=== PATIENT | female | born 1955 | race Hispanic/Latino ===

== ENCOUNTER 2017-09-18 23:51 | Inpatient (IN) | payer BC ==
[~2017-09-18] VITALS: Ht 144.8 cm; Wt 88.0 kg
[~2017-09-18 23:51] MED LIST: BESIVANCE5 ML OD; ILEVRO OD; NAPROSYN500 MG PO; VALACYCLOVIR500 MG PO
[2017-09-19] MEDS ORDERED: ONDANSETRON HCL INJ 2 MG/ML VIAL IV STA ×2 (00:16→04:09)
[2017-09-19] MEDS ORDERED: PANTOPRAZOLE 40 MG 10ML VIAL IV STA (00:16)
[2017-09-19] MEDS ORDERED: MORPHINE SULFATE 2 MG/ML SYR IV STA ×2 (00:16→04:09)
[2017-09-19] MEDS ORDERED: SODIUM CHLORIDE 0.9% 1000ML 1,000 ML IV STA (00:16)
[2017-09-19 00:31] LABS: BASOPHILS # (AUTO) 0.1 (0.0-0.1); BASOPHILS % 0.4 % (0.0-1.0); EOSINOPHILS # (AUTO) 0.5 (0.0-0.4); HEMATOCRIT 39.6 % (34.2-44.1); HEMOGLOBIN 12.9 g/dL (12.0-16.0); LYMPHOCYTES # (AUTO) 5.8 (1.0-3.2); LYMPHOCYTES % 47.5 % (18.0-39.1); MEAN CORPUSCULAR HEMOGLOBIN 28.9 pg (28-32); MEAN CORPUSCULAR HGB CONC 32.6 g/dL (31-35); MEAN CORPUSCULAR VOLUME 88.6 fL (81-99); MONOCYTES # (AUTO) 0.9 (0.2-0.8); MONOCYTES % 7.1 % (4.4-11.3); NEUTROPHILS % 40.8 % (38.7-80.0); PLATELET COUNT 276 x10e3/uL (140-360); RED BLOOD COUNT 4.47 x10e6/uL (3.6-5.1); RED CELL DISTRIBUTION WIDTH 13.5 % (11.7-14.4)
[2017-09-19 00:41] LABS: INR 1.01; PROTHROMBIN TIME 12.5 seconds (11.9-14.5)
[2017-09-19 00:42] LABS: PARTIAL THROMBOPLASTIN TIME 31.5 seconds (23.8-35.5)
[2017-09-19 00:52] LABS: ALANINE AMINOTRANSFERASE 14 IU/L (0-55); ALBUMIN 3.6 g/dL (3.5-5.0); ALBUMIN/GLOBULIN RATIO 0.8 (0.8-2.0); ALKALINE PHOSPHATASE 101 IU/L (40-150); AMYLASE 81 U/L (25-125); ANION GAP 13.7 mmol/L (8-16); BLOOD UREA NITROGEN 19 mg/dL (7-26); BUN/CREATININE RATIO 20 (6-25); CALCIUM 9.6 mg/dL (8.4-10.2); CARBON DIOXIDE 25 mmol/L (22-29); CHLORIDE 103 mmol/L (98-107); CREATINE KINASE 22 IU/L (29-168); CREATININE, SERUM 0.94 mg/dL (0.57-1.11); EST GLOMERULAR FILTRATION RATE 60 ML/MIN (60-); GLUCOSE 125 mg/dL (74-118); LIPASE 33 U/L (8-78); MAGNESIUM 1.7 MG/DL (1.3-2.1); POTASSIUM 3.7 mmol/L (3.5-5.1); SODIUM 138 mmol/L (136-145)
[2017-09-19 02:15] LABS: BILIRUBIN,URINE NEGATIVE (NEGATIVE); KETONES,URINE NEGATIVE (NEGATIVE); LEUKOCYTE ESTERASE ,URINE NEGATIVE (NEGATIVE); NITRITE,URINE NEGATIVE (NEGATIVE); PROTEIN,URINE DIPSTICK NEGATIVE (NEGATIVE); URINE UROBILINOGEN 0.2 mg/dL (0.2 - 1)
[2017-09-19 02:16] LABS: CLARITY,URINE CLEAR (CLEAR); COLOR,URINE YELLOW (YELLOW)
[2017-09-19 02:25] LABS: BACTERIA,URINE FEW /HPF; EPITHELIAL CELLS,URINE FEW /LPF; WBC,URINE (MAN) 0-5 /HPF (0-5)
--- NOTE | 2017-09-19 02:46 | Diagnostic Imaging Report ---
EXAMINATION: CHEST SINGLE (PORTABLE) INDICATION: Abdominal pain COMPARISON: None FINDINGS: TUBES and LINES: None. LUNGS: Lungs are not well inflated. Lungs are clear. There is mild prominence of the central pulmonary vasculature, consistent with pulmonary venous congestion. PLEURA: No pleural effusion or pneumothorax. HEART AND MEDIASTINUM: Cardiac size is moderately enlarged. BONES AND SOFT TISSUES: No acute osseous lesion. Soft tissues are unremarkable. UPPER ABDOMEN: No free air under the diaphragm. IMPRESSION: Moderate enlargement of the heart with evidence of central vascular congestion. Signed by: Dr. Chad Cortez M.D. on 09/19/2017 2:43 AM
--- NOTE | 2017-09-19 02:49 | Diagnostic Imaging Report ---
EXAM: CT Abdomen and Pelvis WITH contrast INDICATION: Right upper quadrant abdominal pain COMPARISON: None. TECHNIQUE: Abdomen and pelvis were scanned utilizing a multidetector helical scanner from the lung base to the pubic symphysis after administration of IV contrast. Coronal and sagittal reformations were obtained. Routine protocol was performed. Scan was performed when during portal venous phase. IV CONTRAST: 100 mL of Isovue-370 ORAL CONTRAST: Water RADIATION DOSE: Total DLP: 669.86 mGy*cm Estimated effective dose: (DLP x 0.015 x size factor) mSv COMPLICATIONS: None FINDINGS: LINES and TUBES: None. LOWER THORAX: Remarkable for moderate pericardial effusion HEPATOBILIARY: No focal hepatic lesions. No biliary ductal dilation. GALLBLADDER: There are stones in the gallbladder. SPLEEN: No splenomegaly. PANCREAS: No focal masses or ductal dilatation. ADRENALS: No adrenal nodules KIDNEYS/URETERS: Kidneys enhance symmetrically. No hydronephrosis. No cystic or solid mass lesions. No stones. GI TRACT: No abnormal distention, wall thickening, or evidence of bowel obstruction. There are diverticula within the colon without evidence of diverticulitis. Appendix is normal. PELVIC ORGANS/BLADDER: There are postop changes of hysterectomy and bilateral oophorectomies. LYMPH NODES: No lymphadenopathy. VESSELS: Unremarkable. PERITONEUM / RETROPERITONEUM: No free air or fluid. BONES: There are degenerative changes in the lumbar spine more significant at L4-5 and L5-S1 levels. SOFT TISSUES: Unremarkable. IMPRESSION: 1. No acute intra-abdominal or pelvic abnormality. 2. Cholelithiasis without evidence of acute cholecystitis. These findings may explain intermittent right upper quadrant pain. Signed by: Dr. Chad Cortez M.D. on 09/19/2017 2:45 AM
[2017-09-19] MEDS ORDERED: IOPAMIDOL 370 MG/ML 200 ML INFUS..BTL INJ ONE (02:59)
[2017-09-19] MEDS ORDERED: SODIUM CHLORIDE 0.9% 50ML 50 ML ONE ×2 (02:59→04:24)
[2017-09-19] MEDS ORDERED: SODIUM CHLORIDE 0.9% 250ML 250 ML ONE (04:27)
[2017-09-19] MEDS ORDERED: PROMETHAZINE HCL (IM) 25 MG/ML VIAL IV PRN (04:30)
--- OUTSIDE RECORDS SUMMARY | 2017-09-19 04:32 | XMS REPORT ---
[facility] Address Unknown Phone Unavailable Care Team Providers Care Grader Operator Name Role Phone YEHUDA OH Unavailable Unavailable Problems This patient has no known problems. Allergies, Adverse Reactions, Alerts This patient has no known allergies or adverse reactions. Medications This patient has no known medications. Results Test Description Test Time Test Comments Text Results Atomic Results Result Comments CHEST SINGLE (PORTABLE) [place] [address] Patient Name: YASH CHEN MR #: [id number] : 1955 Age/Sex: 62/F Req #: [id number] Adm Physician: Ordered by: YEHUDA OH MD Report #: [id number] Location: ER Room/Bed: Procedure: [id number] DX/CHEST SINGLE (PORTABLE) Exam Date: Exam Time: REPORT STATUS: Signed EXAMINATION: CHEST SINGLE ( PORTABLE) INDICATION: Abdominal pain COMPARISON: None FINDINGS: TUBES and LINES: None. LUNGS: Lungs are not well inflated. Lungs are clear. There is mild prominence of the central pulmonary vasculature, consistent with pulmonary venous congestion. PLEURA: No pleural effusion or pneumothorax. HEART AND MEDIASTINUM: Cardiac size is moderately enlarged. BONES AND SOFT TISSUES: No acute osseous lesion. Soft tissues are unremarkable. UPPER ABDOMEN: No free air under the diaphragm. IMPRESSION: Moderate enlargement of the heart with evidence of central vascular congestion. Signed by: Dr. Chad Cortez M.D. on 09/19/2017 2:43 AM Dictated By: CHAD ALDANA MD 2 Transcribed By: LARRY on 09/19/17242 COPY TO: YEHUDA OH MD CT ABDOMEN/PELVIS W [place] [address] Patient Name: YASH CHEN MR #: [id number] : 1955 Age/Sex: 62/F Req #: [id number] Adm Physician: Ordered by: YEHUDA OH MD Report #: [id number] Location: ER Room/Bed: Procedure: [id number] CT/CT ABDOMEN/PELVIS W Exam Date: Exam Time: REPORT STATUS: Signed EXAM: CT Abdomen and Pelvis WITH contrast INDICATION: Right upper quadrant abdominal pain COMPARISON: None. TECHNIQUE : Abdomen and pelvis were scanned utilizing a multidetector helical scanner from the lung base to the pubic symphysis after administration of IV contrast. Coronal and sagittal reformations were obtained. Routine protocol was performed. Scan was performed when during portal venous phase. IV CONTRAST: 100 mL of Isovue-370 ORAL CONTRAST: Water RADIATION DOSE: Total DLP: 669.86 mGy*cm Estimated effective dose: (DLP x 0.015 x size factor) mSv COMPLICATIONS: None FINDINGS: LINES and TUBES: None. LOWER THORAX: Remarkable for moderate pericardial effusion HEPATOBILIARY: No focal hepatic lesions. No biliary ductal dilation. GALLBLADDER: There are stones in the gallbladder. SPLEEN: No splenomegaly. PANCREAS: No focal masses or ductal dilatation. ADRENALS: No adrenal nodules KIDNEYS/ URETERS: Kidneys enhance symmetrically. No hydronephrosis. No cystic or solid mass lesions. No stones. GI TRACT: No abnormal distention, wall thickening, or evidence of bowel obstruction. There are diverticula within the colon without evidence of diverticulitis. Appendix is normal. PELVIC ORGANS/BLADDER: There are postop changes of hysterectomy and bilateral oophorectomies. LYMPH NODES: No lymphadenopathy. VESSELS: Unremarkable. PERITONEUM / RETROPERITONEUM: No free air or fluid. BONES: There are degenerative changes in the lumbar spine more significant at L4-5 and L5-S1 levels. SOFT TISSUES: Unremarkable. IMPRESSION: 1. No acute intra-abdominal or pelvic abnormality. 2. Cholelithiasis without evidence of acute cholecystitis. These findings may explain intermittent right upper quadrant pain. Signed by: Dr. Chad Cortez M.D. on 09/19/2017 2:45 AM Dictated By: CHAD ALDANA MD 4 Transcribed By: LARRY on 09/19/17244 COPY TO: YEHUDA OH MD
[2017-09-19] MEDS: CEFTRIAXONE SOD 1 GM VIAL IV SCH ×2 (04:46→16:24)
[2017-09-19] MEDS: METRONIDAZOLE 500MG/NS 100ML 100 ML IV SCH ×3 (04:56→17:47)
[2017-09-19 05:18] VITALS: BP 139/65
[2017-09-19 05:50] VITALS: BP 139/65
[2017-09-19] MEDS: SODIUM CHLORIDE 0.9% 1000ML 1,000 ML IV SCH ×3 (06:00→22:00)
[2017-09-19 08:00] VITALS: BP 160/75
[2017-09-19] MEDS: PANTOPRAZOLE 40 MG 10ML VIAL IV SCH (08:16)
[2017-09-19] MEDS ORDERED: INFLUENZA VIRUS VAC SPLIT INJ 0.5 ML SYR IM ONE (09:00)
[2017-09-19] MEDS ORDERED: LABETALOL HCL IV 5 MG/ML 20ML MDV IV PRN (09:45)
[2017-09-19 10:04] LABS: CREATINE KINASE MB 0.5 ng/mL (0-5.0)
[2017-09-19 12:00] VITALS: BP 121/61
[2017-09-19] MEDS: ONDANSETRON HCL INJ 2 MG/ML VIAL IV PRN ×2 (15:11→22:00)
[2017-09-19] MEDS: HYDROMORPHONE 1MG/1ML INJ IV PRN ×2 (15:11→22:00)
[2017-09-19 15:32] VITALS: BP 128/59
[2017-09-19 16:57] LABS: CREATINE KINASE MB 0.4 ng/mL (0-5.0)
[2017-09-19 20:00] VITALS: BP 105/54
[2017-09-20] VITALS (7 sets, daily range): BP systolic 100–144; BP diastolic 54–71
[2017-09-20] MEDS: METRONIDAZOLE 500MG/NS 100ML 100 ML IV SCH ×5 (00:43→23:52)
[2017-09-20] MEDS: CEFTRIAXONE SOD 1 GM VIAL IV SCH ×2 (04:28→16:16)
[2017-09-20] MEDS ORDERED: BUPIVACAINE 0.25% 30ML SDV INJ ONE (07:26)
[2017-09-20 07:31] LABS: BASOPHILS % 0.3 % (0.0-1.0); EOSINOPHILS # (AUTO) 0.3 (0.0-0.4); EOSINOPHILS % 2.1 % (0.0-6.0); HEMATOCRIT 35.2 % (34.2-44.1); HEMOGLOBIN 11.3 g/dL (12.0-16.0); LYMPHOCYTES # (AUTO) 2.6 (1.0-3.2); LYMPHOCYTES % 22.2 % (18.0-39.1); MEAN CORPUSCULAR HGB CONC 32.1 g/dL (31-35); MEAN CORPUSCULAR VOLUME 90.5 fL (81-99); MONOCYTES % 8.1 % (4.4-11.3); NEUTROPHILS # (AUTO) 7.9 (2.1-6.9); NEUTROPHILS % 66.9 % (38.7-80.0); PLATELET COUNT 236 x10e3/uL (140-360); RED BLOOD COUNT 3.89 x10e6/uL (3.6-5.1); RED CELL DISTRIBUTION WIDTH 13.8 % (11.7-14.4)
[2017-09-20 08:09] LABS: ALBUMIN/GLOBULIN RATIO 0.8 (0.8-2.0); ANION GAP 11.6 mmol/L (8-16); CALCIUM 8.7 mg/dL (8.4-10.2); CREATININE, SERUM 0.96 mg/dL (0.57-1.11); POTASSIUM 3.6 mmol/L (3.5-5.1)
[2017-09-20] MEDS ORDERED: HYDROMORPHONE 1MG/1ML INJ IV PRN (09:45)
[2017-09-20] MEDS ORDERED: HYDROMORPHONE 1MG/1ML INJ ONE (10:00)
--- NOTE | 2017-09-20 10:21 | Operative Report ---
DATE OF PROCEDURE: September 20, 2017 PREOPERATIVE DIAGNOSIS: Acute cholecystitis secondary to cholelithiasis. POSTOPERATIVE DIAGNOSIS: Acute cholecystitis secondary to cholelithiasis. PROCEDURE PERFORMED: Laparoscopic cholecystectomy with decompression of hydrops of the gallbladder. ANESTHESIA: General endotracheal. ESTIMATED BLOOD LOSS: Minimal. DRAINS: None. COMPLICATIONS: None. INDICATIONS AND FINDINGS: This patient is a 62-year-old female admitted for cholecystectomy. She had a history of cholelithiasis in the past, but had not elected to have surgery, and thus admitted through the emergency room with acute cholecystitis secondary to cholelithiasis. There was no ductal dilatation by CT scan. Liver chemistries were normal. INTRAOPERATIVE FINDINGS: Acute cholecystitis with hydrops of the gallbladder. There was a large stone impacted in the outlet of the gallbladder. There were a total of 3. There was no ductal dilatation. There was hydrops of the gallbladder that was decompressed. DESCRIPTION OF PROCEDURE: With the patient lying on the operating table in the supine position and after administration, she was prepped and draped for laparoscopic cholecystectomy. The procedure was begun by establishing a pneumoperitoneum in the right upper quadrant midclavicular line because of previous midline . Pneumoperitoneum was insufflated to 15 mm of pressure. Then the 5-mm trocar was placed in that location under direct vision with a camera. We inspected the umbilical site. There were adhesions of the omentum to the area of the umbilicus. Then we made an incision superior to the umbilicus avoiding the adhesions of the omentum in that location and potentially any small bowel injury. We then placed a 10/11 trocar superior to the umbilicus to gain free access to the abdominal cavity. Then we rotated the patient to the left with the head up, and placed a 10 mm subxiphoid port and one right anterior axillary line trocar. Also, finally we placed a left upper quadrant 5-mm trocar to expose the operative field due to the inflammatory changes in the hepatoduodenal ligament. We then began the procedure by lysing adhesions of omentum and stomach to the gallbladder sharply, and then exposed the gallbladder completely. We then decompressed the gallbladder with an aspiration needle. Then we were to grasp it. The stomach and omentum were retracted posteriorly and inferiorly, and then we exposed the hepatoduodenal ligament. The dissection of the gallbladder was begun in the neck of the gallbladder until we identified the cystic duct. We traced the cystic duct to the common bile duct. At that point, we then clipped the cystic duct 3 times distally and once proximally. A small anterior branch was transected between titanium clips. Then the main artery was located more posteriorly. Then it was clipped as it entered the gallbladder between titanium clips also. Then we removed the gallbladder using electrocautery dissection and hydrodissection until we detached it. We placed the gallbladder in an endobag, including stones that had fallen off from the gallbladder during the dissection. Then we removed it through the umbilical port period. We re-insufflated the pneumoperitoneum, and then inspected the operative field. We irrigated the right lower quadrant. There was some oozing coming from the undersurface of the right lobe of the liver, and this was controlled with pressure and Surgicel after ascertaining hemostasis was absolute and that there was no bile leak. No bleeding. We then placed a 10 mm flat Amari-Bonilla drain and brought it out through the right anterior axillary trocar, and secured it there with 2-0 silk, placed the drain in the hepatoduodenal ligament foramen of [facility]. The drain was connected to self-suction. We then released the pneumoperitoneum under direct vision with a camera. There was no bleeding. We closed the wounds using 0 Vicryl for the umbilical fascia, 3-0 Vicryl for the subcutaneous tissue in that location, as well as the subxiphoid port, and the skin of all the ports was closed using zbigniew. Then 0.25% Marcaine with epinephrine was given as local block. The patient tolerated the procedure well, and was taken to the recovery room in stable condition. Job#: [id number] RI
[2017-09-20] MEDS: SODIUM CHLORIDE 0.9% 1000ML 1,000 ML IV SCH ×2 (10:30→20:47)
[2017-09-20] MEDS: PANTOPRAZOLE 40 MG 10ML VIAL IV SCH (11:17)
[2017-09-20] MEDS ORDERED: ROCURONIUM BROMIDE 10 MG/ML 5ML VIAL ONE (14:56)
[2017-09-20] MEDS ORDERED: NEOSTIGMINE 5 MG/5ML SYR ONE (14:56)
[2017-09-20] MEDS ORDERED: SEVOFLURANE INHAL SOLN 250 ML PEN BTL ONE (14:56)
[2017-09-20] MEDS ORDERED: KETOROLAC TROMETHAMINE 30 MG/ML VIAL ONE (14:56)
[2017-09-20] MEDS ORDERED: LIDOCAINE HCL 2% LOCAL INJ 5 ML SDV VIAL INJ ONE (14:56)
[2017-09-20] MEDS ORDERED: ONDANSETRON HCL INJ 2 MG/ML VIAL ONE (14:56)
[2017-09-20] MEDS ORDERED: PROPOFOL IV EMULSION 10 MG/ML 20 ML VIAL ONE (14:56)
[2017-09-20] MEDS ORDERED: DEXAMETHASONE SOD PHOS INJ 4 MG/ML VIAL ONE (14:56)
[2017-09-20] MEDS ORDERED: GLYCOPYRROLATE INJ 1MG/ 5 ML SYR ONE (14:56)
[2017-09-20] MEDS ORDERED: MIDAZOLAM HCL 2 MG/2 ML VIAL ONE (16:00)
[2017-09-20] MEDS ORDERED: FENTANYL CITRATE/PF 100MCG/2 ML INJ ONE (16:00)
[2017-09-20] MEDS: MORPHINE SULFATE 2 MG/ML SYR IV PRN (20:55)
[2017-09-21] VITALS (8 sets, daily range): BP systolic 114–134; BP diastolic 58–65
[2017-09-21] MEDS: MORPHINE SULFATE 2 MG/ML SYR IV PRN (03:48)
[2017-09-21] MEDS: CEFTRIAXONE SOD 1 GM VIAL IV SCH ×2 (03:48→16:02)
[2017-09-21] MEDS: SODIUM CHLORIDE 0.9% 1000ML 1,000 ML IV SCH ×2 (06:30→16:30)
[2017-09-21] MEDS: METRONIDAZOLE 500MG/NS 100ML 100 ML IV SCH ×3 (06:31→17:06)
[2017-09-21 07:43] LABS: BASOPHILS % 0.2 % (0.0-1.0); EOSINOPHILS # (AUTO) 0.2 (0.0-0.4); EOSINOPHILS % 1.4 % (0.0-6.0); HEMATOCRIT 30.9 % (34.2-44.1); LYMPHOCYTES # (AUTO) 2.5 (1.0-3.2); LYMPHOCYTES % 18.5 % (18.0-39.1); MEAN CORPUSCULAR HEMOGLOBIN 29.4 pg (28-32); MEAN CORPUSCULAR HGB CONC 32.4 g/dL (31-35); MEAN CORPUSCULAR VOLUME 90.9 fL (81-99); MONOCYTES # (AUTO) 1.3 (0.2-0.8); MONOCYTES % 9.4 % (4.4-11.3); NEUTROPHILS # (AUTO) 9.4 (2.1-6.9); NEUTROPHILS % 70.2 % (38.7-80.0); PLATELET COUNT 168 x10e3/uL (140-360); RED CELL DISTRIBUTION WIDTH 13.8 % (11.7-14.4)
[2017-09-21 08:22] LABS: ALANINE AMINOTRANSFERASE 69 IU/L (0-55); ALBUMIN 2.6 g/dL (3.5-5.0); ALBUMIN/GLOBULIN RATIO 0.8 (0.8-2.0); ALKALINE PHOSPHATASE 68 IU/L (40-150); ANION GAP 10.8 mmol/L (8-16); BLOOD UREA NITROGEN 9 mg/dL (7-26); BUN/CREATININE RATIO 11 (6-25); CALCIUM 8.3 mg/dL (8.4-10.2); CARBON DIOXIDE 24 mmol/L (22-29); CHLORIDE 109 mmol/L (98-107); CREATININE, SERUM 0.84 mg/dL (0.57-1.11); EST GLOMERULAR FILTRATION RATE > 60 ML/MIN (60-); GLUCOSE 108 mg/dL (74-118); POTASSIUM 3.8 mmol/L (3.5-5.1); SODIUM 140 mmol/L (136-145)
[2017-09-21] MEDS: PANTOPRAZOLE 40 MG 10ML VIAL IV SCH (08:36)
[2017-09-21] MEDS: HYDROCODONE/APAP 7.5MG-325MG 1 EA TAB PO PRN ×2 (11:59→16:02)
--- NOTE | 2017-09-21 14:47 | Progress Note ---
DATE: INTERNAL MEDICINE PROGRESS NOTE Patient is doing well. No new complaints. No abdominal pain. No vomiting. PHYSICAL EXAMINATION HEART: Showed regular rhythm. Normal S1 and S2. LUNGS: Clear bilaterally. ABDOMEN: Soft. Noted incision of the abdomen. Bowel sounds are positive. EXTREMITIES: No evidence of cyanosis or trauma. VITAL: Blood pressure 118/59, temperature 98.3, heart rate 60 per minute, respiratory rate is 20 per minute, oxygen saturation 98%. BLOOD WORK: We have BMP with a sodium 138, potassium 3.6, chloride 105, CO2 25, BUN 10, creatinine 0.96, glucose 109. CBC: White blood count 11.8, hemoglobin 11.3, hematocrit 35.2, and platelet count of 260,000. PT 12.5, PTT 31.5 and INR 1.01. Liver function tests are elevated much more compared to yesterday. FINAL IMPRESSION 1. Acute cholecystitis: Status post cholecystectomy. She is tolerating the liquid diet. 2. Elevated liver function tests, which are worse than yesterday. 3. Leukocytosis. PLAN OF TREATMENT: We are going to do an MRCP. We are going to repeat the liver function tests tomorrow. We are going to get a gastroenterology consult with Dr. Portillo Scales to make sure the patient does not have any common bile duct stone. CBC tomorrow. Rule out cardiomyopathy. We are going to order an echocardiogram. Job#: [id number] ARNOLDO
[2017-09-22] VITALS (7 sets, daily range): BP systolic 100–149; BP diastolic 57–67
[2017-09-22] MEDS: METRONIDAZOLE 500MG/NS 100ML 100 ML IV SCH ×4 (01:00→16:58)
[2017-09-22] MEDS: SODIUM CHLORIDE 0.9% 1000ML 1,000 ML IV SCH ×2 (02:30→11:57)
[2017-09-22] MEDS: CEFTRIAXONE SOD 1 GM VIAL IV SCH ×2 (04:36→16:26)
[2017-09-22] MEDS: HYDROCODONE/APAP 7.5MG-325MG 1 EA TAB PO PRN (07:20)
[2017-09-22] MEDS: PANTOPRAZOLE 40 MG 10ML VIAL IV SCH (07:20)
[2017-09-22 09:04] LABS: BASOPHILS % 0.4 % (0.0-1.0); EOSINOPHILS # (AUTO) 0.4 (0.0-0.4); EOSINOPHILS % 4.2 % (0.0-6.0); HEMATOCRIT 31.4 % (34.2-44.1); HEMOGLOBIN 10.2 g/dL (12.0-16.0); LYMPHOCYTES # (AUTO) 1.9 (1.0-3.2); LYMPHOCYTES % 18.2 % (18.0-39.1); MEAN CORPUSCULAR HEMOGLOBIN 29.1 pg (28-32); MEAN CORPUSCULAR HGB CONC 32.5 g/dL (31-35); MEAN CORPUSCULAR VOLUME 89.5 fL (81-99); MONOCYTES # (AUTO) 0.8 (0.2-0.8); MONOCYTES % 7.9 % (4.4-11.3); NEUTROPHILS % 68.9 % (38.7-80.0); PLATELET COUNT 185 x10e3/uL (140-360); RED BLOOD COUNT 3.51 x10e6/uL (3.6-5.1); RED CELL DISTRIBUTION WIDTH 13.9 % (11.7-14.4)
[2017-09-22 09:28] LABS: ALANINE AMINOTRANSFERASE 56 IU/L (0-55); ALBUMIN 2.7 g/dL (3.5-5.0); ALBUMIN/GLOBULIN RATIO 0.8 (0.8-2.0); ALKALINE PHOSPHATASE 69 IU/L (40-150); ANION GAP 11.1 mmol/L (8-16); BLOOD UREA NITROGEN 7 mg/dL (7-26); BUN/CREATININE RATIO 9 (6-25); CALCIUM 8.4 mg/dL (8.4-10.2); CARBON DIOXIDE 25 mmol/L (22-29); CHLORIDE 107 mmol/L (98-107); CREATININE, SERUM 0.79 mg/dL (0.57-1.11); EST GLOMERULAR FILTRATION RATE > 60 ML/MIN (60-); GLUCOSE 128 mg/dL (74-118); POTASSIUM 3.1 mmol/L (3.5-5.1); SODIUM 140 mmol/L (136-145)
[2017-09-22] MEDS ORDERED: POTASSIUM CHLORIDE 20 MEQ TAB CR PO ONE ×2 (12:15→15:00)
--- NOTE | 2017-09-22 14:16 | Progress Note ---
DATE: INTERNAL MEDICINE PROGRESS NOTE The patient is status post cholecystectomy. Liver function tests were elevated at the beginning and slowly coming down. Still elevated. The patient has no symptoms at all. Patient claimed that she had a history of congestive failure before. We ordered an echocardiogram and the preliminary echocardiogram report showed an ejection fraction of 60% to 65%. No evidence of any severe valvular abnormality. She does have calcified aortic valve fibers and pericarditis effusion of 1.5 cm, and mild mitral and tricuspid regurgitation. Because of that, we are going to consult Dr. Salter from cardiology and see his opinion about that and see if anything needs to be done. Otherwise, he is asymptomatic. No shortness of breath. No cough. PHYSICAL EXAMINATION VITALS: Blood pressure 100/59, temperature 97.4, heart rate 64 per minute, respiratory rate 20 per minute, oxygen saturation 95%. HEART: Regular rhythm. Normal S1 and S2 sounds. LUNGS: Clear bilaterally. ABDOMEN: Soft. Has an incision from the surgery. EXTREMITIES: Show no evidence of cyanosis or trauma. BLOOD WORK: The BMP shows sodium 140, potassium 3.1, chloride 107, CO2 25, BUN 7, creatinine 0.79, glucose 128. On the CBC, white blood count 10.1, hemoglobin 10.2, hematocrit 31.4, and platelet count 285,000. PT 12.5, PTT 31.5 and INR 1.01. AST 64, ALT 66, total bilirubin 0.3, alkaline phosphatase 69. FINAL IMPRESSION 1. Acute cholecystitis, status post cholecystectomy. 2. Elevated liver function test which are slowly resolving. 3. Pericardial effusion. PLAN OF TREATMENT: Patient is going to be having an evaluation by Dr. Salter for cardiology because of her pericardial effusion. Potassium is going to be replaced. We are going to recheck the potassium level tomorrow. We are going to recheck the liver function tests tomorrow. I discussed the case with Dr. Oscar Cronin. He is in agreement that the patient can be discharged from the surgical point of view. I am going to wait for the spare fixer to do an evaluation before discharge. I am going to recheck the potassium level tomorrow and going to recheck the liver function tests tomorrow. Dr. Portillo Scales has been consulted from the gastroenterology point of view because of elevated liver function tests. Job#: [id number] RI
--- NOTE | 2017-09-22 16:51 | Consultation ---
DATE OF CONSULTATION: September 22, 2017 CARDIOLOGY CONSULTATION REASON FOR CONSULTATION: Pericardial effusion. HISTORY OF PRESENT ILLNESS: Ms. Mims is a 62-year-old lady with really no significant past medical history outside of remote history of cataract and left knee surgery who presented to this institution with several-day progressively worsening right upper quadrant biliary colic pain and perhaps early cholecystitis. She underwent successful laparoscopic cholecystectomy on Wednesday, September 20, 2017 and has been recovering from that operation. She most recently had her IGNACIO drain removed today and yesterday did get an echocardiogram to evaluate some mild exertional dyspnea symptoms and was noted to have small pericardial effusion. Patient denies any chest pain or discomfort. She reports her baseline class 2 exertional dyspnea. Denies any orthopnea or any PND or any lower extremity swelling. Her only complaint is some mild left sciatica-type pain, which is exacerbated by prolonged sitting and perhaps pressure on the left side of her butt cheek. Patient denies any fevers or chills, and her appetite is slowly progressing. She has only very mild right upper quadrant discomfort appropriate postoperatively. PAST MEDICAL HISTORY: 1. History of bilateral cataract surgery. 2. History of left knee arthroscopic surgery. 3. History of biliary colic, status post laparoscopic cholecystectomy on this admission. FAMILY HISTORY: Mother alive at 81 with Alzheimer's dementia. Father in his late 70s secondary to cancer. Denies any premature family history of coronary artery disease. SOCIAL HISTORY: She is a lifelong nonsmoker and reports very rare, occasional alcohol or wine use. Denies any illicit drug use. ALLERGIES: PENICILLIN AND CODEINE. HOME MEDICATIONS: 1. Besivance eyedrops. 2. Valacyclovir p.o. REVIEW OF SYSTEMS: GENERAL: Denies any fevers or chills. HEENT: Has occasional headaches. Has occasional night-time eye blurriness post eye surgery. No vision complaints. Oropharynx is without any pain. No nasal congestion or sore throat. RESPIRATORY: Denies any pleuritic chest pain. No cough. Has only mild exertional dyspnea. CARDIOVASCULAR: As per HPI. Denies any palpitations, syncope, or near syncope. GI: Does report some mild right upper quadrant pain that is improving postoperatively. Denies any bright red blood per rectum, melena, or hematemesis. Does have a remote history of hemorrhoids. : Denies any dysuria, urinary frequency, or pyuria. MUSCULOSKELETAL: Does report left leg sciatica-type pain. No leg swelling. HEMATOLOGY: No easy bruising or bleeding. ID: No known infectious issues. NEUROLOGIC: Denies any focal weakness, numbness, tingling, seizures, headaches, or history of TIA or stroke. The remainder of the review of systems is negative, otherwise mentioned. PHYSICAL EXAMINATION VITAL SIGNS: Height of 57 inches, weight of 194 pounds; BMI is 42. Temperature 97.4, blood pressure 100/59, pulse 64, respiratory rate 20, and O2 sat 95% on room air. GENERAL: This is a well-nourished, well-developed lady who is currently in no apparent distress. HEENT: Extraocular movements are intact. Oropharynx is clear. NECK: No elevation of jugular venous pulsation. No carotid bruits. CARDIOVASCULAR: Regular rate and rhythm. Normal S1 and S2. Soft 1/6 systolic ejection murmur at the left lower sternal border. LUNGS: Large clear to auscultation bilaterally with fair air entry. ABDOMEN: Soft, nontender, and obese with laparoscopic cholecystectomy scars that are stapled, that is well healing and a right upper quadrant dressing where the IGNACIO drain was. BACK: No costovertebral angle tenderness. EXTREMITIES: Warm with 2+ bilateral radial pulses and 2+ bilateral pedal pulses. There is no edema. NEUROLOGIC: Cranial nerves II through XII are grossly preserved. LABORATORY AND DIAGNOSTIC DATA: White count of 10.1, hemoglobin 10.2, hematocrit 31.4, and platelets of 185. Sodium 140, potassium 3.1, chloride 107, bicarb 25, BUN 7, creatinine 0.79, and glucose 128. INR is 1.01. AST 64, ALT 56, alkaline phosphatase 69, total bili 0.3, total protein 6.3, and albumin of 2.7. Chest x-ray showed some enlarged cardiomediastinal silhouette. CT of the abdomen and pelvis prior to operation showed evidence of cholelithiasis. Echocardiogram reviewed from yesterday revealing left ventricular ejection fraction of 55%, some small pericardial effusion and mild MR and TR. DIAGNOSES 1. Pericardial effusion, most likely secondary to hypoalbuminemia, currently without any signs of tamponade, both by echo and by history. 2. Biliary colic/early cholecystitis, status post laparoscopic cholecystectomy. 3. Obesity. 4. Mild anemia, likely postoperative related. 5. Hypokalemia. PLAN/RECOMMENDATIONS 1. From a cardiovascular standpoint, there is no clinical or echocardiographic sign of tamponade and pericardial effusion is on the small side. We will recommend just watchful waiting, observation, and perhaps repeat echocardiogram in 4 to 6 weeks. 2. Appreciate primary team, GI, and surgery in regard to her active GI issues, appears to be recovering well from that process. 3. Recommend just aggressive risk factor modification with medical therapy from a cardiovascular standpoint. 4. Okay to go home later today. We went ahead and write to replete some of her potassium via p.o. therapy. Job#: [id number] AGUSTIN
[2017-09-22 18:31] LABS: MAGNESIUM 1.7 MG/DL (1.3-2.1); POTASSIUM 3.7 mmol/L (3.5-5.1)
== END 2017-09-22 20:16 | disposition home or self-care (01) | DRG 418 ==
LOC: ER 23:51 → ERHOLD 09-19 04:29 → MED/SURG 09-19 05:01
PROC: 0FT44ZZ Resection of Gallbladder, Percutaneous Endoscopic Approach (ICD-10-PCS; principal; 2017-09-20 07:27)
DX: K80.00 Calculus of gallbladder with acute cholecystitis without obstruction (principal); K82.1 Hydrops of gallbladder; I31.3 Pericardial effusion (noninflammatory); D62 Acute posthemorrhagic anemia; Z68.41 Body mass index [BMI] 40.0-44.9, adult; M54.30 Sciatica, unspecified side; E88.09 Other disorders of plasma-protein metabolism, not elsewhere classified; E87.6 Hypokalemia; E66.9 Obesity, unspecified; I08.1 Rheumatic disorders of both mitral and tricuspid valves; I70.0 Atherosclerosis of aorta
CPT/HCPCS: 36415; 71045; 74177; 80053; 81001; 82150; 82550; 82553; 83690; 83735; 84132; 84484; 85025; 85610; 85730; 87086; 88304; 93005; 93306; 99284; C1766; J0696; J1100; J1170; J1885; J2001; J2250; J2270; J2405; J2550; J7030; J7050; Q9967

== ENCOUNTER 2017-11-13 00:34 | Emergency (ER) | payer BC ==
[~2017-11-13] VITALS: Ht 144.8 cm; Wt 88.0 kg
--- OUTSIDE RECORDS SUMMARY | 2017-11-13 00:38 | XMS REPORT | Continuity of Care Document ---
Author Author [facility] Organization [facility] Address [address] [place] [address] Phone Unavailable Care Team Providers Care Supervisor Audit Clerks Name Role Phone JOSE PAIGE DO PCP Insurance Providers Guarantor Jenelle Chen Address [address] [place] [address] Email [email or web address] Ppo Policy Number [id number] Subscriber's Name Jenelle Chen Relationship 18 Self / Same As Patient Group Number [id number] Group Name [id number] - [employer]AN 03 Effective Date 13 Advance Directives Directive Response Recorded Date/Time Does the patient have an advance directive? Yes 09/19/17 5:42am If yes, is advance directive on file with [facility]? No 09/19/17 5:42am If not on file with [facility] will patient provide a copy? Yes 09/19/17 5:42am Do you have a Directive to Physician? No 09/19/17 12:24am Do you have a Medical Power of Supervisor Blood [employer] Rec[employer]ers? No 09/19/17 12:24am Do you have an out of hospital Do Not Resuscitate Order? No 09/19/17 12:24am Do you have any special needs we should be aware of? No 09/19/17 12:24am Do you have a support person here with you today? Yes 09/19/17 12:24am Did patient receive Notice of Privacy Practices? Yes 09/19/17 12:24am Did patient receive patient rights and responsibilities? Yes 09/19/17 12:24am Problems Medical Problem Onset Date Status Cholelithiasis and cholecystitis without obstruction Unknown Medications Current Home Medications Medication Dose Units Route Directions Days Qty Instructions Start Date Besifloxacin Hcl (Besivance) 5 Ml Drops.susp 1 Drop Right Eye Three Times A Day Ilevro 1 Drop Right Eye Daily Valacyclovir Hcl (Valacyclovir) 500 Mg Tablet 500 Mg Oral Daily 30 Tab Past Home Medications Medication Directions Ordered Status Naproxen (Naprosyn) 500 Mg Tablet, 500 Mg Oral As Needed Discontinued Social History No social history information available. Hospital Discharge Instructions No hospital discharge instruction information available. Plan of Care Discharge Date 09/22/17 8:16pm Disposition HOME, SELF-CARE Instructions/Education Provided Cholelithiasis Stitches and [place] Care Prescriptions See Medication Section Referrals KATHRIN SCHAEFER MD (Surgery) Order Date: 09/30/2017 Entered Date: 09/22/2017 7:09pm Address: [address] [place] [address] [address] [place] [address] JUNAY PATTEN MD (Cardiology) Order Date: 2 Months Entered Date: 09/22/2017 7:09pm Address: [address] [place] [address] [address] [place] [address] Additional Instructions/Education Regular Diet No heavy lifting > 10 lbs. OK to shower in 2 days Functional Status Query Response Date Recorded Assistive Devices None September 19, 2017 5:50am Ambulation Ability Independent September 19, 2017 5:50am Toileting Ability Independent September 22, 2017 9:20am Allergies, Adverse Reactions, Alerts Allergen Type Severity Reaction Status Last Updated Penicillin Allergy Unknown Active 10/01/12 Codeine Allergy Unknown Active 10/01/12 Immunizations No immunization information available. Vital Signs Acute Vital Signs Vital Response Date/Time Temperature (Fahrenheit) 97.9 degrees F (97.6 - 99.5) 09/22/2017 8:02pm Pulse Pulse Rate (adult) 66 bpm (60 - 90) 09/22/2017 8:02pm Respiratory Rate 18 bpm (12 - 24) 09/22/2017 8:02pm Blood Pressure 149/67 mm Hg 09/22/2017 8:02pm Height 4 ft 9 in 09/19/2017 12:11am Weight 194 lb 09/19/2017 5:18am Body Mass Index 42.0 kg/m^2 09/19/2017 1:03pm Results Laboratory Results Test Name Result Units Flags Reference Collection Date/Time Result Date/ Time Comments White Blood Count 10.19 x10e3/uL 4.8-10.8 09/22/2017 8:54am 09/22/2017 9:07am Red Blood Count 3.51 x10e6/uL L 3.6-5.1 09/22/2017 8:54am 09/22/2017 9: 07am Hemoglobin 10.2 g/dL L 12.0-16.0 09/22/2017 8:54am 09/22/2017 9:07am Hematocrit 31.4 % L 34.2-44.1 09/22/2017 8:54am 09/22/2017 9:07am Mean Corpuscular Volume 89.5 fL 81-99 09/22/2017 8:54am 09/22/2017 9: 07am Mean Corpuscular Hemoglobin 29.1 pg 28-32 09/22/2017 8:54am 09/22/2017 9:07am Mean Corpuscular Hemoglobin Concent 32.5 g/dL 31-35 09/22/2017 8:54am 09/22/2017 9:07am Red Cell Distribution Width 13.9 % 11.7-14.4 09/22/2017 8:54am 2017 9:07am Platelet Count 185 x10e3/uL 140-360 09/22/2017 8:54am 09/22/2017 9: 07am Neutrophils (%) (Auto) 68.9 % 38.7-80.0 09/22/2017 8:54am 09/22/2017 9: 07am Lymphocytes (%) (Auto) 18.2 % 18.0-39.1 09/22/2017 8:54am 09/22/2017 9: 07am Monocytes (%) (Auto) 7.9 % 4.4-11.3 09/22/2017 8:54am 09/22/2017 9: 07am Eosinophils (%) (Auto) 4.2 % 0.0-6.0 09/22/2017 8:54am 09/22/2017 9: 07am Basophils (%) (Auto) 0.4 % 0.0-1.0 09/22/2017 8:54am 09/22/2017 9:07am IM GRANULOCYTES % 0.4 % 0.0-1.0 09/22/2017 8:54am 09/22/2017 9:07am Neutrophils # (Auto) 7.0 H 2.1-6.9 09/22/2017 8:54am 09/22/2017 9: 07am Lymphocytes # (Auto) 1.9 1.0-3.2 09/22/2017 8:54am 09/22/2017 9:07am Monocytes # (Auto) 0.8 0.2-0.8 09/22/2017 8:54am 09/22/2017 9:07am Eosinophils # (Auto) 0.4 0.0-0.4 09/22/2017 8:54am 09/22/2017 9:07am Basophils # (Auto) 0.0 0.0-0.1 09/22/2017 8:54am 09/22/2017 9:07am Absolute Immature Granulocyte (auto 0.04 x10e3/uL 0-0.1 09/22/2017 8: 54am 09/22/2017 9:07am Prothrombin Time 12.5 seconds 11.9-14.5 09/19/2017 12:18am 09/19/2017 12:43am Prothromb Time International Ratio 1.01 09/19/2017 12:18am 2017 12:43am Oral Anticoagulant Therapy INR Values: 1. Low Intensity Therapy 1.5 - 2.0 2. Moderate Intensity Therapy 2.0 - 3.0 3. High Intensity Therapy(1) 2.5 - 3.5 4. High Intensity Therapy(2) 3.0 - 4.0 5. Panic Value INR > 5.0 Activated Partial Thromboplast Time 31.5 seconds 23.8-35.5 09/19/2017 12 :18am 09/19/2017 12:43am Urine Color YELLOW YELLOW 09/19/2017 2:00am 09/19/2017 2:16am Urine Clarity CLEAR CLEAR 09/19/2017 2:00am 09/19/2017 2:16am Urine Specific [place] 1.025 1.010-1.025 09/19/2017 2:00am 2017 2:16am Urine pH 5 5 - 7 09/19/2017 2:00am 09/19/2017 2:16am Urine Leukocyte Esterase NEGATIVE NEGATIVE 09/19/2017 2:00am 2017 2:16am Urine Nitrite NEGATIVE NEGATIVE 09/19/2017 2:00am 09/19/2017 2:16am Urine Protein NEGATIVE NEGATIVE 09/19/2017 2:00am 09/19/2017 2:16am Urine Glucose (UA) NEGATIVE NEGATIVE 09/19/2017 2:00am 09/19/2017 2: 16am Urine Ketones NEGATIVE NEGATIVE 09/19/2017 2:00am 09/19/2017 2:16am Urine Urobilinogen 0.2 mg/dL 0.2 - 1 09/19/2017 2:00am 09/19/2017 2: 16am Urine Bilirubin NEGATIVE NEGATIVE 09/19/2017 2:00am 09/19/2017 2: 16am Urine Blood 1+ H NEGATIVE 09/19/2017 2:00am 09/19/2017 2:16am Urine WBC 0-5 /HPF 0-5 09/19/2017 2:00am 09/19/2017 2:25am Urine RBC 6-10 /HPF H 0-5 09/19/2017 2:00am 09/19/2017 2:25am Urine Bacteria FEW /HPF NONE 09/19/2017 2:00am 09/19/2017 2:25am Urine Epithelial Cells FEW /LPF NONE 09/19/2017 2:00am 09/19/2017 2: 25am Sodium Level 140 mmol/L 136-145 09/22/2017 8:54am 09/22/2017 9:29am Potassium Level 3.7 mmol/L 3.5-5.1 09/22/2017 6:10pm 09/22/2017 6:39pm Chloride Level 107 mmol/L 98-107 09/22/2017 8:54am 09/22/2017 9:29am Carbon Dioxide Level 25 mmol/L 22-29 09/22/2017 8:54am 09/22/2017 9: 29am Anion Gap 11.1 mmol/L 8-16 09/22/2017 8:54am 09/22/2017 9:29am Blood Urea Nitrogen 7 mg/dL 7-09/22/2017 8:54am 09/22/2017 9:29am Creatinine 0.79 mg/dL 0.57-1.11 09/22/2017 8:54am 09/22/2017 9:29am BUN/Creatinine Ratio 9 6-09/22/2017 8:54am 09/22/2017 9:29am Estimat Glomerular Filtration Rate > 60 ML/MIN 60- 09/22/2017 8:54am 9:29am Ranges were taken from the National Kidney Disease Education Program and the National Kidney Foundation literature. Reference ranges: 60 or greater: Normal 16-59 (for 3 consecutive months): Chronic kidney disease 15 or less: Kidney failure Glucose Level 128 mg/dL H 74-118 09/22/2017 8:54am 09/22/2017 9:29am Calcium Level 8.4 mg/dL 8.4-10.2 09/22/2017 8:54am 09/22/2017 9:29am Magnesium Level 1.7 MG/DL 1.3-2.1 09/22/2017 6:10pm 09/22/2017 6:39pm Total Bilirubin 0.3 mg/dL 0.2-1.2 09/22/2017 8:54am 09/22/2017 9:29am Aspartate Amino Transf (AST/SGOT) 64 IU/L H 5-34 09/22/2017 8:54am 09/22 9:29am Alanine Aminotransferase (ALT/SGPT) 56 IU/L H 0-55 09/22/2017 8:54am 9:29am Total Protein 6.3 g/dL L 6.5-8.1 09/22/2017 8:54am 09/22/2017 9:29am Albumin 2.7 g/dL L 3.5-5.0 09/22/2017 8:54am 09/22/2017 9:29am Globulin 3.6 g/dL H 2.3-3.5 09/22/2017 8:54am 09/22/2017 9:29am Albumin/Globulin Ratio 0.8 0.8-2.0 09/22/2017 8:54am 09/22/2017 9: 29am Alkaline Phosphatase 69 IU/L 40-150 09/22/2017 8:54am 09/22/2017 9: 29am Creatine Kinase 15 IU/L L 29-168 09/19/2017 4:20pm 09/19/2017 4:51pm Creatine Kinase MB 0.40 ng/mL 0-5.0 09/19/2017 4:20pm 09/19/2017 5: 01pm Troponin I 0.005 ng/mL 0-0.300 09/19/2017 4:20pm 09/19/2017 5:01pm Amylase Level 62 U/L 25-125 09/20/2017 7:04am 09/20/2017 8:21am Lipase 10 U/L 8-78 09/20/2017 7:04am 09/20/2017 8:21am Procedures Procedure Status Date Provider(s) Laparoscopic cholecystectomy Completed 09/20/17 KATHRIN SCHAEFER MD Computed tomography of abdomen and pelvis with contrast Active 09/19/17 YEHUDA OH MD Encounters Encounter Location Arrival/Admit Date Discharge/Depart Date Attending Provider Discharged Inpatient [facility] 09/19/17 4:29am 09/22/17 8:16pm MAGDALENO THOMAS MD
== END 2017-11-13 01:13 | disposition home or self-care (01) ==
LOC: ER 00:34
DX: H60.92 Unspecified otitis externa, left ear (principal)
CPT/HCPCS: 99282

== ENCOUNTER → 2019-04-10 | Day surgery (SDC) | payer BC ==
[~2019-04-10] MED LIST changes: +GLUCAGON FOR INJ 1 MG VIAL ONE; +HYOSCYAMINE 0.125 MG TAB ONE; +KETAMINE HCL INJ 50 MG/ML 10 ML VIAL ONE; +LIDOCAINE HCL 2% LOCAL INJ 5 ML SDV VIAL INJ ONE; +MIDAZOLAM HCL 2 MG/2 ML VIAL ONE; +PHENTERMINE H37.5 M1 PO; +PROPOFOL IV EMULSION 10 MG/ML 50 ML VIAL ONE
--- OUTSIDE RECORDS SUMMARY | 2019-04-10 11:33 | XMS REPORT | Summary of Care ---
Author Organization Unknown Address Unknown Phone Unavailable Encounter NADEGE Spring(LEXI) [id number] Date(s): 01/28/14 - 01/28/14 [facility] [address] Discharge Diagnosis: Acute head injury Discharge Diagnosis: Knee pain Discharge Diagnosis: Ankle pain Discharge Diagnosis: Accidental fall Discharge Disposition: Home Physician Attending: Khadijah Saleh MD Reason for Visit FALL Vital Signs Most recent to 1 2 oldest [Reference Range]: Height 144.78 cm (01/28/14 8:43 PM) Temperature Oral 97.8 DegF [96.4-99.1 DegF] (01/28/14 8:43 PM) Systolic Blood 118 mmHg 137 mmHg Pressure [90-140 (01/28/14 11:28 PM) (01/28/14 8:43 PM) mmHg] Diastolic Blood 68 mmHg 67 mmHg Pressure [60-90 (01/28/14 11:28 PM) (01/28/14 8:43 PM) mmHg] Respiratory Rate 17 BRMIN 18 BRMIN [14-20 BRMIN] (01/28/14 11:28 PM) (01/28/14 8:43 PM) Peripheral Pulse 65 bpm 71 bpm Rate [60-100 bpm] (01/28/14 11:28 PM) (01/28/14 8:43 PM) Weight 82.273 kg (01/28/14 8:43 PM) Body Mass Index 39.25 m2 (01/28/14 8:43 PM) Problem List No data available for this section Allergies, Adverse Reactions, Alerts Substance Reaction Severity Status codeine Active Medications ibuprofen 800 mg, 1 tab, Route: PO, Drug form: TAB, ONCE, Dosing Weight 82.273, kg, Priori ty: STAT, Start date: 01/28/14 21:25:00, Stop date: 01/28/14 21:25:00 Notes: (Same as: Motrin)"Do Not Crush" Take with food. Start Date: 01/28/14 Stop Date: 01/28/14 Status: Completed Motrin 800 mg oral tablet 800 mg=1 tab, PO, Q8H, Pain, Take with food, # 30 tab, 0 Refill(s) Special Instructions: Take with food Start Date: 01/28/14 Status: Ordered [place] 5/325 oral tablet 1 tab, Route: PO, Drug Form: TAB, Dosing Weight 82.273, kg, ONCE, Start date: 21:25:00, Stop date: 01/28/14 21:25:00 Notes: (Same as: [place] 325/5) Do not exceed 4gm/day of acetaminophen. Start Date: 01/28/14 Stop Date: 01/28/14 Status: Completed [place] 5/325 oral tablet 1-2 tab, PO, Q4-6H, Pain, # 15 tab, 0 Refill(s) Start Date: 01/28/14 Stop Date: 02/02/14 Status: Ordered Medications Administered During Your Visit No data available for this section Immunizations No data available for this section
--- OUTSIDE RECORDS SUMMARY | 2019-04-10 11:33 | XMS REPORT | Continuity of Care Document ---
Author Author [employer] Address Unknown Phone Unavailable Care Team Providers Care Compound Coating Machine Offbearer Name Role Phone [employer] Unavailable Unavailable Problems Problem Status Onset Date Classification Date Reported Comments Source Tinea corporis 08/01/2017 Diagnosis 08/02/2017 [facility] Discharge Diagnosis: Acute head injury 01/28/2014 01/31/2014 [facility] Discharge Diagnosis: Knee pain 01/28/2014 01/31/2014 [facility] Discharge Diagnosis: Ankle pain 01/28/2014 01/31/2014 [facility] Discharge Diagnosis: Accidental fall 01/28/2014 01/31/2014 [facility] FALL Active 01/28/2014 [facility] Herpes simplex Problem 08/02/2017 [facility] Allergic rhinitis Problem 08/02/2017 [facility] Medications Medication Details Route Status Patient Instructions Ordering Provider Order Date Source Acetaminophen 325 MG / Hydrocodone Bitartrate 5 MG Oral Tablet [[place] 5/325] 1-2 tab, PO, Q4-6H, Pain, # 15 tab, 0 Refill(s) Active 01/29/2014 [facility] Ibuprofen 800 MG Oral Tablet [Motrin] 800 mg=1 tab, PO, Q8H, Pain, Take with food, # 30 tab, 0 Refill(s)Special Instructions: Take with food Active 01/29/2014 [facility] Acetaminophen 325 MG / Hydrocodone Bitartrate 5 MG Oral Tablet [[place] 5/325] 1 tab, Route: PO, Drug Form: TAB, Dosing Weight 82.273, kg, ONCE, Start date: 01/28/14 21:25:00, Stop date: 01/28/14 21:25:00Notes: (Same as: [place] 325/5) Do not exceed 4gm/day of acetaminophen. Inactive 01/29/2014 [facility] Ibuprofen 800 mg, 1 tab, Route: PO, Drug form: TAB, ONCE, Dosing Weight 82.273, kg, Priority: STAT, Start date: 01/28/14 21:25:00, Stop date: 01/28/14 21:25:00Notes: (Same as: [place]) "Do Not Crush" Take with food. Inactive 01/29/2014 [facility] Betamethasone 0.5 MG/ML / Clotrimazole 10 MG/ML Topical Cream clotrimazole-betamethasone 1 %-0.05 % topical cream APPLY TO THE AFFECTED AND SURROUNDING AREAS OF SKIN BY TOPICAL ROUTE 2 TIMES PER DAY IN THE MORNING AND EVENING FOR 2 WEEKS Active [facility] Allergies, Adverse Reactions, Alerts Substance Category Reaction Severity Reaction type Status Date Reported Comments Source Codeine Allergy to substance 07/31/2011 [facility] Penicillins Allergy to substance 07/31/2011 [facility] codeine Assertion Drug allergy Active [facility] Immunizations Immunization Date Given Site Status Last Updated Comments Source influenza, seasonal, injectable 07/29/2010 completed [facility] Results No Data Provided for This Section Pathology Reports No Data Provided for This Section Diagnostic Reports Report Value Date Source Knee series Right knee, 4 views: Exam reason: Pain and swelling. There is no acute fracture or dislocation noted. no joint fluid collection is noted. SL:12 01/28/2014 [facility] Ankle 3 views Left ankle, 3 views: Exam reason: Trauma, pain. Ankle mortise well-maintained. There is no acute fracture or dislocation noted. Plantar calcaneal spurring is noted. Soft tissue swelling ventral aspect of the left ankle. SL:12 01/28/2014 [facility] Consultation Notes No Data Provided for This Section Discharge Summaries No Data Provided for This Section History and Physicals No Data Provided for This Section Vital Signs Vital Sign Value Date Comments Source Diastolic (mm Hg) 90 08/01/2017 [facility] Height 57 08/01/2017 [facility] Systolic (mm Hg) 130 08/01/2017 [facility] Weight 78 08/01/2017 [facility] Heart Rate 65 01/29/2014 [facility] Respitory Rate 17 01/29/2014 [facility] Diastolic (mm Hg) 68 01/29/2014 [facility] Systolic (mm Hg) 118 01/29/2014 [facility] Weight 82.273 01/29/2014 [facility] Height 144.78 cm 01/29/2014 [facility] BMI Calculated 39.25 01/29/2014 [facility] Systolic (mm Hg) 137 01/29/2014 [facility] Temperature Oral (F) 97.8 F 01/29/2014 [facility] Respitory Rate 18 01/29/2014 [facility] Diastolic (mm Hg) 67 01/29/2014 [facility] Heart Rate 71 01/29/2014 [facility] Encounters Location Location Details Encounter Type Encounter Number Reason For Visit Attending Provider ADM Date DC Date Status Source [facility] [id number] Khadijah Saleh 01/29/2014 01/29/2014 [facility] [place] [id number] [place] [facility]: [address] [place] [address], Ph. [id number] Elvira Lazo 08/01/2017 [facility] Procedures Procedure Code Date Perfomer Comments Source Anesth Dx Knee Arthroscopy 09863 [facility] Delivery 76074 [facility] Assessment and Plan No Data Provided for This Section Plan of Care No Data Provided for This Section Social History Social History Date Source Smoking Status Never Smoker 07/31/2011 [facility] Family History No Data Provided for This Section Advance Directives No Data Provided for This Section Functional Status No Data Provided for This Section
--- OUTSIDE RECORDS SUMMARY | 2019-04-10 11:33 | XMS REPORT | Encounter Summary ---
Author Organization Unknown Address [address] [place] [address] Phone [phone] Care Team Providers Care Lead Carpenter Name Role Phone Florian Giron MD 3 [phone] Reason for Visit Bilateral Medical Complaint Instructions 1. Tinea corporis clotrimazole-betamethasone 1 %-0.05 % topical cream Discussion Note Pt is in NAD; Verbalizes understanding of all instructions with no questions at this time. Patient educational handouts: No information available. Plan of Care Patient Instructions Take Zyrtec over the counter for itching. Try not to scratch the rash. Shower or bathe daily and after you exercise. Keep your skin dry as much as possible to allow it to heal. Use selsum shampoo over the counter twice a week for 2 weeks. Do not share clothing, sports equipment, towels, or sheets to avoid spreading the fungi to other people. Keep area clean and dry. Clean with soap and water twice a day, pat dry and apply antifungal + steroid cream. Take medications as prescribed. Return to clinic or follow up with your PCP or radar technician within 2-3 days if symptoms worsen as discussed. In case of emergency: worsening swelling or redness, tingling/numbness/loss of sensation and purple discoloration call 911 or go to nearest ER Reminders Provider Appointments None recorded. Lab None recorded. Referral None recorded. Procedures None recorded. Surgeries None recorded. Imaging None recorded. Medications Name Start Date clotrimazole-betamethasone 1 %-0.05 % topical cream APPLY TO THE AFFECTED AND SURROUNDING AREAS OF SKIN BY TOPICAL ROUTE 2 TIMES PER DAY IN THE MORNING AND EVENING FOR 2 WEEKS Medications Administered None recorded. Vitals Height Weight BMI Blood Pressure 4 ft 9 in 78 lbs 16.9 kg/m2 130/90 mm[Hg] Lab Results None recorded. Allergies Code Code System Name Reaction Severity Status Onset 103 RxNorm Codeine Active Penicillins Active Problems Name Status Onset Date Source Herpes Simplex Active Encounter Allergic Rhinitis Active Encounter Procedures Date Name Performed by Anesth Dx Knee Arthroscopy Information not available Delivery Information not available Vaccine List Vaccine Type influenza, seasonal, injectable 07/29/2010 Social History Smoking Status Never Smoker Past Encounters 08/01/2017 Tinea Corporis Elvira Lazo, [facility]: [address] [facility], [place] [address], Ph. History of Present Illness Wsdi-Xqdnzlq-Voofm-Skin Lesion-Bite 1 Reported By: Patient HPI: Location: face, arms. Quality: not painful, itchy, flaking, red, multiple, generalized, swollen. Severity: worsening, moderate. Duration: has noted for <1 week. Onset/Timing: gradual onset. Context: no new detergents or skin products, no one else with similar rash, no sting or bite, scratching. Aggravating factors: clothing. Alleviating factors: nothing gives relief. Associated Symptoms: no fever/chills, no muscle aches, no headache, no cold symptoms, no nausea, no vomiting, no diarrhea, no urinary symptoms Review of Systems:ROS as noted in the HPI Review of Systems Basic Reported By: Patient Physical Exam Adult Basic, 11-13 Yr Males, 14-21 Yr Male, Adult Female Complete Reported By: Patient Constitutional: General Appearance: healthy-appearing, well-nourished, well-developed. Level of Distress: NAD. Ambulation: ambulating normally Psychiatric: Mental Status: active and alert. Orientation: to time, to place, to person Eyes: Lids and Conjunctivae: non-injected, no discharge, no pallor. Pupils: PERRLA, equal size, round, reactive to light Lungs: Respiratory effort: no dyspnea. Auscultation: breath sounds normal Cardiovascular: Heart Auscultation: RRR, no murmurs Skin: Inspection and palpation: lesion
[2019-04-10 15:25] VITALS: BP 124/93
== END | disposition home or self-care (01) ==
LOC: OR 11:20
PROVIDERS: ATTEND Internal Medicine Gastroenterology
DX: Z09 Encounter for follow-up examination after completed treatment for conditions other than malignant neoplasm (principal); K63.5 Polyp of colon; K57.30 Diverticulosis of large intestine without perforation or abscess without bleeding; K63.89 Other specified diseases of intestine; K64.8 Other hemorrhoids; K62.89 Other specified diseases of anus and rectum; G47.33 Obstructive sleep apnea (adult) (pediatric); Z88.6 Allergy status to analgesic agent; Z88.0 Allergy status to penicillin; Z01.810 Encounter for preprocedural cardiovascular examination; Z68.41 Body mass index [BMI] 40.0-44.9, adult; Z87.891 Personal history of nicotine dependence
CPT/HCPCS: 45380; 45384; 93005; J2001; J2250; J2704; 45378

== ENCOUNTER → 2020-12-30 | Day surgery (SDC) | payer MEDICARE ==
[2020-12-27 14:57] LABS: BASOPHILS % 0.4 % (0.0-1.0); EOSINOPHILS # (AUTO) 0.5 (0.0-0.4); EOSINOPHILS % 5.3 % (0.0-6.0); HEMATOCRIT 42.1 % (34.2-44.1); HEMOGLOBIN 13.4 g/dL (12.0-16.0); LYMPHOCYTES # (AUTO) 3.6 (1.0-3.2); LYMPHOCYTES % 36.3 % (18.0-39.1); MEAN CORPUSCULAR HEMOGLOBIN 29.3 pg (28-32); MEAN CORPUSCULAR HGB CONC 31.8 g/dL (31-35); MEAN CORPUSCULAR VOLUME 92.1 fL (81-99); MONOCYTES # (AUTO) 0.7 (0.2-0.8); MONOCYTES % 7.4 % (4.4-11.3); NEUTROPHILS % 50.3 % (38.7-80.0); PLATELET COUNT 254 x10e3/uL (140-360); RED BLOOD COUNT 4.57 x10e6/uL (3.6-5.1); RED CELL DISTRIBUTION WIDTH 13.7 % (11.7-14.4)
[~2020-12-30] MED LIST changes: +BUPIVACAINE HCL 0.5% INJ 30 ML VIAL INJ ONE; +CLINDAMYCIN PHOS 900MG/ 50ML 50 ML IV ONE; +DEXAMETHASONE SOD PHOS INJ 4 MG/ML VIAL ONE; -GLUCAGON FOR INJ 1 MG VIAL ONE; +HYDROCODON-ACE1 EA11 PO; -HYOSCYAMINE 0.125 MG TAB ONE; -KETAMINE HCL INJ 50 MG/ML 10 ML VIAL ONE; +KETOROLAC TROMETHAMINE 30 MG/ML VIAL ONE; +MEPERIDINE HCL INJ 25 MG/ML VIAL ONE; -MIDAZOLAM HCL 2 MG/2 ML VIAL ONE; +ONDANSETRON HCL INJ 2MG/ML 2ML 2 MG/ML VIAL ONE; +POVIDONE IODINE 0.05% 0.05 % ML PO ONE; +PROPOFOL IV EMULSION 10 MG/ML 20 ML VIAL ONE; -PROPOFOL IV EMULSION 10 MG/ML 50 ML VIAL ONE; +ROCURONIUM BROMIDE 10 MG/ML 5ML VIAL IV ONE; +SEVOFLURANE INHAL SOLN 250 ML PEN BTL ONE; +[UNRECOGNIZED DRUG - OTHER] PO
[2020-12-30 08:35] VITALS: BP 118/79
== END | disposition home or self-care (01) ==
LOC: OR 05:23
PROVIDERS: ATTEND Podiatrist Foot & Ankle Surgery
DX: S82.61XA Displaced fracture of lateral malleolus of right fibula, initial encounter for closed fracture (principal); X58.XXXA Exposure to other specified factors, initial encounter; Z88.6 Allergy status to analgesic agent; Z88.0 Allergy status to penicillin; Z01.810 Encounter for preprocedural cardiovascular examination; Z01.812 Encounter for preprocedural laboratory examination; Z01.818 Encounter for other preprocedural examination; Z20.822 Contact with and (suspected) exposure to COVID-19
CPT/HCPCS: 27792; 36415; 71046; 76000; 85025; 93005; C1713 ×5; J1100; J1885; J2001; J2175; J2405; J2704; U0002

== ENCOUNTER 2023-06-19 08:52 | Outpatient (RCR) | payer MEDICARE ==
[~2023-06-19 08:52] MED LIST changes: +BC POWDER PACK1 EAC1 PO; -BUPIVACAINE HCL 0.5% INJ 30 ML VIAL INJ ONE; -CLINDAMYCIN PHOS 900MG/ 50ML 50 ML IV ONE; -DEXAMETHASONE SOD PHOS INJ 4 MG/ML VIAL ONE; +KEFLEX125 MG/5 M PO; -KETOROLAC TROMETHAMINE 30 MG/ML VIAL ONE; -LIDOCAINE HCL 2% LOCAL INJ 5 ML SDV VIAL INJ ONE; +MELOXICAM15 MG PO; -MEPERIDINE HCL INJ 25 MG/ML VIAL ONE; -ONDANSETRON HCL INJ 2MG/ML 2ML 2 MG/ML VIAL ONE; -POVIDONE IODINE 0.05% 0.05 % ML PO ONE; -PROPOFOL IV EMULSION 10 MG/ML 20 ML VIAL ONE; -ROCURONIUM BROMIDE 10 MG/ML 5ML VIAL IV ONE; -SEVOFLURANE INHAL SOLN 250 ML PEN BTL ONE
== END 2023-06-27 ==
LOC: PT 08:52
PROVIDERS: ATTEND Specialist
DX: M17.12 Unilateral primary osteoarthritis, left knee (principal); M62.81 Muscle weakness (generalized); M25.562 Pain in left knee